=== PATIENT | male | born 1960 | race Caucasian/White ===

== ENCOUNTER 2020-02-04 19:08 | Inpatient (IN) | payer OTHER ==
--- NOTE | 2020-02-04 19:37 | PDOC ---
Rapid Medical Evaluation Chief Complaint: Lightheaded Time Seen by Provider: 02/04/20 19:32 Medical Evaluation: 02/04/20 19:35 59 year old male history of diabetes c.o chills, dizziness, denies cough, chest pain, sob patient reports that he had a dental abscess a week ago since then he is unwell. PE: patient alert ox3. A: hyperglyecemia? P: labs IVf Discharge Disposition - Diagnosis Dizziness - Referrals - Patient Instructions - Post Discharge Activity
[2020-02-04] MEDS ORDERED: SODIUM CHLORIDE 1,000 ML IV STA (19:38)
[2020-02-04 19:46] VITALS: BP 146/87; PULSE 108; TEMP 98.6; BMI 21.5
--- NOTE | 2020-02-04 20:31 | PDOC ---
History of Present Illness - General Chief Complaint: Lightheaded Stated Complaint: DIZZINESS Time Seen by Provider: 02/04/20 19:32 History Source: Patient Exam Limitations: No Limitations - History of Present Illness Initial Comments: 02/04/20 20:28 HISTORY OF PRESENT ILLNESS: 59-year-old male past medical history of NIDDM who presents emergency department for evaluation of fatigue and nausea after having an abscess burst in his mouth. Patient reports he was suffering with a gingival abscess over the past 4 days when he noticed some relief after it had burst. He had swallowed some of the felt tasting discharge he began to feel ill afterwards. He denies any fevers, chills, shortness of breath, hematuria, dysuria, polyuria, polydipsia polyphagia, rectal bleeding. No recent travel or sick contacts. PAST MEDICAL HISTORY: NIDDM SURGICAL HISTORY: Denies ALLERGIES: No known drug allergies REVIEW OF SYSTEMS General/Constitutional: See HPI HEENT: Denies change in vision. Denies ear pain or discharge. Denies sore throat. Cardiovascular: Denies chest pain or shortness of breath. Respiratory: Denies cough, wheezing, or hemoptysis. Gastrointestinal: Denies nausea, vomiting, diarrhea or constipation. Denies rectal bleeding. Genitourinary: Denies dysuria, frequency, or change in urination. Musculoskeletal: Denies joint or muscle swelling or pain. Denies neck or back pain. Skin and breasts: Denies rash or easy bruising. Neurologic: Denies headache, vertigo, loss of consciousness, or loss of sensation. Psychiatric: Denies depression or anxiety. Endocrine: Denies increased thirst. Denies abnormal weight change. Hematologic/Lymphatic: Denies anemia, easy bleeding, or history of blood clots. Allergic/Immunologic: Denies hives or skin allergy. Denies latex allergy. PHYSICAL EXAM General Appearance: Well-appearing, appropriately dressed. No apparent distress , no intoxication. HEENT: EOMI, PERRLA, normal ENT inspection, normal voice, TMs normal, pharynx normal. No conjunctival pallor. No photophobia, scleral icterus. Poor dentition present. Plus presents on the buccal aspect of the gingival surface at the area of tooth #16. No facial swelling present. No tenderness upon palpation of the facial bones. Neck: Supple. Trachea midline. No tenderness, rigidity, carotid bruit, stridor, lymphadenopathy, or thyromegaly. Respiratory/Chest: Lungs CTAB. No shortness of breath, chest tenderness, respiratory distress, accessory muscle use. No crackles, rales, rhonchi, stridor, wheezing, dullness Cardiovascular: RRR. S1, S2. No JVD, murmur, bradycardia, tachycardia. Vascular Pulses: Dorsalis-Pedis (R): 2+, Dorsalis-Pedis (L): 2+ Gastrointestinal/Abdominal: Normal bowel sounds. Abdomen soft, non-distended. No tenderness or rebound tenderness. No organomegaly, pulsatile mass, guarding, hernia, hepatomegaly, splenomegaly. Neurologic: machinist supervisor outside II-XII intact. Fully oriented, alert. Appropriate mood/affect. Motor strength 5/5. No appreciable EOM palsy, facial droop or sensory deficit. Past History - Past Medical History Allergies/Adverse Reactions: Allergies Allergy/AdvReac Type Severity Reaction Status Date / Time No Known Allergies Allergy Verified 02/04/20 19:38 - Psycho Social/Smoking Cessation Hx Smoking History: Never smoked Hx Alcohol Use: No Drug/Substance Use Hx: No *Physical Exam - Vital Signs Last Vital Signs Temp Pulse Resp BP Pulse Ox 98.6 F 108 H 18 146/87 96 02/04/20 19:35 02/04/20 19:35 02/04/20 19:35 02/04/20 19:35 02/04/20 19:35 ED Treatment Course - LABORATORY CBC & Chemistry Diagram: 02/04/20 20:26 02/04/20 20:26 - ADDITIONAL ORDERS Additional order review: Laboratory Results 02/04/20 20:25 POC Glucometer 413 02/04/20 20:25 POC Glucometer 413 Medical Decision Making - Medical Decision Making 02/04/20 20:31 A/P: 59-year-old male with nausea after he swallowed purulent drainage from a dental abscess Heart rate 108. Respiratory rate 18 [id number] Patient is tachycardic likely due to pain. Patient unlikely to be in DKA as he is a fjb-[id number]-ilvumrval diabetic with a sugar of 417. Labs including beta hydroxybutyric acid Normal saline 1 L IV bolus Urinalysis Reassess 02/04/20 22:01 Laboratory Tests 02/04/20 02/04/20 02/04/20 19:39 20:25 20:26 WBC 9.1 RBC 5.55 Hgb 15.3 Hct 47.3 MCV 85.3 MCH 27.6 MCHC 32.4 RDW 13.0 Plt Count 302 MPV 8.4 Absolute Neuts (auto) 8.0 Neutrophils % 87.8 H Lymphocytes % 5.8 L Monocytes % 6.1 Eosinophils % 0.0 Basophils % 0.3 Nucleated RBC % 0 Sodium Potassium Chloride Carbon Dioxide Anion Gap BUN Creatinine Est GFR (CKD-EPI)AfAm Est GFR (CKD-EPI)NonAf POC Glucometer 413 Random Glucose Calcium Total Bilirubin AST ALT Alkaline Phosphatase Creatine Kinase Troponin I Total Protein Albumin Beta-Hydroxybutyrate Pending 02/04/20 20:26 WBC RBC Hgb Hct MCV MCH MCHC RDW Plt Count MPV Absolute Neuts (auto) Neutrophils % Lymphocytes % Monocytes % Eosinophils % Basophils % Nucleated RBC % Sodium 130 L Potassium 5.9 H Chloride 92 L Carbon Dioxide 19 L Anion Gap 19 H BUN 29.7 H Creatinine 1.7 H Est GFR (CKD-EPI)AfAm 49.70 Est GFR (CKD-EPI)NonAf 42.88 POC Glucometer Random Glucose 395 H Calcium 10.4 H Total Bilirubin 0.6 AST 34 ALT 33 Alkaline Phosphatase 93 Creatine Kinase 142 Troponin I < 0.02 Total Protein 8.4 H Albumin 3.3 L Beta-Hydroxybutyrate EKG sinus rhythm with rate of 100. Normal intervals present. Normal axis. No ischemic changes noted. No peak T waves present. Given patient's elevated potassium, anion gap of 19 and acute kidney injury will admit patient for continued hydration and treatment of DKA. Patient states he does not have a primary doctor. Microblog has been sent to the hospitalist service for admission. 02/04/20 22:04 02/04/20 22:27 Discharge - Discharge Information Problems reviewed: Yes Clinical Impression/Diagnosis: DKA (diabetic ketoacidoses), Hyperkalemia, SERGEY (acute kidney injury) - Follow up/Referral - Patient Discharge Instructions - Post Discharge Activity
[2020-02-04 21:14] LABS: BASO % 0.3 % (0-2.0); HEMATOCRIT 47.3 % (35.4-49); HEMOGLOBIN 15.3 GM/dL (11.7-16.9); LYMPH % 5.8 % (8-40); MCH 27.6 pg (25.7-33.7); MCHC 32.4 g/dl (32.0-35.9); MEAN CELL VOLUME 85.3 fl (80-96); MEAN PLT VOLUME 8.4 fl (7.5-11.1); MONO % 6.1 % (3.8-10.2); NEUT % 87.8 % (42.8-82.8); PLATELET COUNT 302 K/MM3 (134-434); RBC 5.55 M/mm3 (4.00-5.60); WHITE BLOOD COUNT 9.1 K/mm3 (4.0-10.0)
[2020-02-04 21:49] LABS: ALBUMIN 3.3 g/dl (3.4-5.0); ALK PHOS 93 U/L (45-117); ANION GAP 19 MMOL/L (8-16); BILIRUBIN,TOTAL 0.6 mg/dL (0.2-1); BLOOD UREA NITROGEN 29.7 mg/dL (7-18); CALCIUM 10.4 mg/dL (8.5-10.1); CHLORIDE 92 mmol/L (98-107); CO2 19 mmol/L (21-32); CREATININE 1.7 mg/dL (0.55-1.3); GLUCOSE,RANDOM 395 mg/dL (74-106); POTASSIUM 5.9 mmol/L (3.5-5.1); SGOT/AST 34 U/L (15-37); SGPT/ALT 33 U/L (13-61); SODIUM 130 mmol/L (136-145); TOT PROT 8.4 g/dl (6.4-8.2)
[2020-02-04] MEDS ORDERED: INSULIN REGULAR HUMAN 100 UNITS/ML *VIAL SQ ONE (21:59)
[2020-02-04 22:39] LABS: VENOUS PC02 37.1 mmHg (38-52); VENOUS PH 7.32 (7.31-7.41)
[2020-02-04 22:40] LABS: VENOUS PO2 < 49 mmHg (28-48)
--- NOTE | 2020-02-04 22:42 | PN ---
Teaching Attending Note Name of Resident: Nuha Petty ATTENDING PHYSICIAN STATEMENT I saw and evaluated the patient. I reviewed the resident's note and discussed the case with the resident. I agree with the resident's findings and plan as documented. SUBJECTIVE: Patient is a 59-year-old man with a PMH of NIDDM and ?Gingival abscess who p resents to the ER with fatigue and nausea after having an abscess burst in his mouth. Patient reports he was suffering with a gingival abscess over the past 4 days when he noticed some relief after it had burst. He had swallowed some of the felt tasting discharge he began to feel ill afterwards. He denies any fevers, chills, shortness of breath, hematuria, dysuria, polyuria, polydipsia polyphagia, rectal bleeding. Denies alcohol, tobacco or illicit drug use. No sick contacts or recent travels. OBJECTIVE: Alert Vital Signs Period Temp Pulse Resp BP Sys/Toribio Pulse Ox Last 24 Hr 98.6 F 108 18 146/87 96 HEENT: No Jaundice, eye redness or discharge, PERRLA, EOMI. Normocephalic, atraumatic. External ears are normal and hearing is grossly intact. No nasal discharge. Neck: Supple, nontender. No palpable adenopathy or thyromegaly. No JVD Chest: Good effort. Clear to auscultation and percussion. Heart: Regular. No S3, rub or murmur Abdomen: Not distended, soft, nontender and no HSM. No rebound or guarding. Normal bowel sounds. Ext: Peripheral pulses intact. No leg edema. Skin: Warm and dry. No petechiae, rash or ecchymosis. Neuro: Alert. Oriented x3. CN 2-12 grossly intact. Sensation grossly intact in all four extremities and DTR are symmetric. Psych: Appropriate mood and affect. Good insight. Current Medications Generic Name Dose Route Start Last Admin Trade Name Freq PRN Reason Stop Dose Admin Chlorhexidine Gluconate 1 applic 02/05/20 22:00 Hibiclens For Decolonization - TP HS ERICA Heparin Sodium (Porcine) 5,000 unit 02/05/20 06:00 Heparin - SQ TID ERICA Sodium Chloride 1,000 mls @ 75 mls/hr 02/04/20 23:15 Normal Saline - IV ASDIR ERICA Mupirocin 1 applic 02/04/20 23:15 Bactroban Ointment (For Decolonization) - NS 02/09/20 23:14 BID ERICA Abnormal Lab Results 02/04/20 02/04/20 02/04/20 19:39 20:26 20:26 Neutrophils % 87.8 H Lymphocytes % 5.8 L POC VBG pCO2 POC VBG pO2 VBG HCO3 VBG O2 Sat (Tarun) VBG Base Excess Sodium 130 L Potassium 5.9 H Chloride 92 L Carbon Dioxide 19 L Anion Gap 19 H BUN 29.7 H Creatinine 1.7 H Random Glucose 395 H Calcium 10.4 H Total Protein 8.4 H Albumin 3.3 L Beta-Hydroxybutyrate > 46.0 H 02/04/20 22:30 Neutrophils % Lymphocytes % POC VBG pCO2 37.1 L POC VBG pO2 < 49 H VBG HCO3 18.4 L VBG O2 Sat (Tarun) 40.1 L VBG Base Excess -6.6 L Sodium Potassium Chloride Carbon Dioxide Anion Gap BUN Creatinine Random Glucose Calcium Total Protein Albumin Beta-Hydroxybutyrate ASSESSMENT AND PLAN: 1. Gingival abscess/DKA - Will treat dental abscess with Clindamycin 300 mg IV q 6 hours and consult Oral surgery and ID. Will treat mild DKA with IV insulin and IV NS and monitor accoding to the DKA protocol. Provide comprehensive diabetes care with patient teaching and counseling about the importance of adherence to prescribed diabetes regimen, euglycemia, eye care and foot care. No acute abnormality on CXR. Will continue comprehensive care for all of patients comorbid conditions. 2. Hypoalbuminemia - Possibly due to combined effects of malnutrition and inflammation associated with comorbid chronic conditions. Will ensure adequate dietary protein intake and also consult wireless development manager. Urinalysis pending. 3. SERGEY - Likely ue to dehydration. Will get kidney sonogram and monitor urine output as he is hydrated. Hyperkalemia and hyponatremia will improve with hydration and euglycemia. Will consult nephrology and avoid nephrotoxic agents such as NSAIDS, aminoglycosides, contrast dyes and certain Alternative medicine products. 4. DVT prophylaxis - Heparin 5000u sq tid. 5. Advance directives - Full code
[2020-02-04] MEDS ORDERED: SODIUM CHLORIDE 1,000 ML IV SCH (23:15)
[2020-02-04] MEDS ORDERED: MUPIROCIN 2% TOPICAL OINTMENT FOR DECOLONIZATION NS SCH (23:15)
[2020-02-04] MEDS ORDERED: INSULIN REGULAR HUMAN 100 UNITS/ML *VIAL IVPUSH ONE (23:31)
--- NOTE | 2020-02-04 23:45 | HP ---
PCP: none HISTORY OF PRESENT ILLNESS: This is a 59-year-old male past medical history of NIDDM who presents emergency department for evaluation of fatigue and nausea after having an abscess burst in his mouth. Patient reports he was suffering with a gingival abscess over the past 4 days when he noticed some relief after it had burst. He had swallowed some of the pus, stating he could taste the discharge and he began to feel ill afterwards. He denies any fevers, chills, shortness of breath, hematuria, dysuria, polyuria, polydipsia polyphagia, rectal bleeding. No recent travel or sick contacts. ER course was notable for: (1)- EKG- 100 rate, QTc 415, normal sinus rhythm (2) (3) PAST MEDICAL HISTORY: PAST SURGICAL HISTORY: Allergies No Known Allergies Allergy (Verified 02/04/20 19:38) HOME MEDICATIONS: REVIEW OF SYSTEMS negative except above PHYSICAL EXAMINATION Vital Signs - 24 hr 02/04/20 19:35 Temperature 98.6 F Pulse Rate 108 H Respiratory 18 Rate Blood Pressure 146/87 O2 Sat by Pulse 96 Oximetry (%) Due to lack of PPE, refer to ED Note PE Laboratory Results - last 24 hr 02/04/20 02/04/20 02/04/20 19:39 20:25 20:26 WBC 9.1 RBC 5.55 Hgb 15.3 Hct 47.3 MCV 85.3 MCH 27.6 MCHC 32.4 RDW 13.0 Plt Count 302 MPV 8.4 Absolute Neuts (auto) 8.0 Neutrophils % 87.8 H Lymphocytes % 5.8 L Monocytes % 6.1 Eosinophils % 0.0 Basophils % 0.3 Nucleated RBC % 0 VBG pH POC VBG pCO2 POC VBG pO2 VBG HCO3 VBG O2 Sat (Tarun) VBG Base Excess Sodium Potassium Chloride Carbon Dioxide Anion Gap BUN Creatinine Est GFR (CKD-EPI)AfAm Est GFR (CKD-EPI)NonAf POC Glucometer 413 Random Glucose Calcium Total Bilirubin AST ALT Alkaline Phosphatase Creatine Kinase Troponin I Total Protein Albumin Beta-Hydroxybutyrate > 46.0 H 02/04/20 02/04/20 02/04/20 20:26 22:30 23:38 WBC RBC Hgb Hct MCV MCH MCHC RDW Plt Count MPV Absolute Neuts (auto) Neutrophils % Lymphocytes % Monocytes % Eosinophils % Basophils % Nucleated RBC % VBG pH 7.32 POC VBG pCO2 37.1 L POC VBG pO2 < 49 H VBG HCO3 18.4 L VBG O2 Sat (Tarun) 40.1 L VBG Base Excess -6.6 L Sodium 130 L Potassium 5.9 H Chloride 92 L Carbon Dioxide 19 L Anion Gap 19 H BUN 29.7 H Creatinine 1.7 H Est GFR (CKD-EPI)AfAm 49.70 Est GFR (CKD-EPI)NonAf 42.88 POC Glucometer 359 Random Glucose 395 H Calcium 10.4 H Total Bilirubin 0.6 AST 34 ALT 33 Alkaline Phosphatase 93 Creatine Kinase 142 Troponin I < 0.02 Total Protein 8.4 H Albumin 3.3 L Beta-Hydroxybutyrate ASSESSMENT/PLAN: This is a 59-year-old male past medical history of NIDDM who presents emergency department for evaluation of fatigue and nausea after having an abscess burst in his mouth. Patient reports he was suffering with a gingival abscess over the past 4 days when he noticed some relief after it had burst. He had swallowed some of the pus, stating he could taste the discharge and he began to feel ill afterwards. #Acute DKA - likely 2/2 poor glycemic control due to non-compliance or abscess - Glu 395, AG 19, HCO3 19, VBG pH 7.32, - K 5.9 will initiate IV insulin bolus 0.1mg/kg - no need for drip even though AG elevated likely pt will close it with a bolus - pt refusing insulin drip - BGM q1h, BMP q4h - ABG ordered - beta hydroxybutyrate elevated - EKG- 100 rate, QTc 415, normal sinus rhythm #Gingival abscess - likely cause of DKA - 3gQ8 unasyn - afebrile - no leukocytosis - continue to monitor Visit type - Emergency Visit Emergency Visit: Yes ED Registration Date: 02/04/20 Care time: The patient presented to the Emergency Department on the above date and was hospitalized for further evaluation of their emergent condition. - New Patient This patient is new to me today: Yes Date on this admission: 02/05/20 - Critical Care Critical Care patient: No ATTENDING PHYSICIAN STATEMENT I saw and evaluated the patient. I reviewed the resident's note and discussed the case with the resident. I agree with the resident's findings and plan as documented. SUBJECTIVE: OBJECTIVE: ASSESSMENT AND PLAN:
[2020-02-05 00:17] LABS: BLOOD UREA NITROGEN 29.9 mg/dL (7-18); CALCIUM 9.2 mg/dL (8.5-10.1); CREATININE 1.4 mg/dL (0.55-1.3); POTASSIUM 4.8 mmol/L (3.5-5.1)
--- NOTE | 2020-02-05 00:52 | CONSULT ---
Consultation: REQUESTING PROVIDER: Dr. Morales CONSULT REQUEST: We have been asked to medically evaluate this patient for DKA. HISTORY OF PRESENT ILLNESS: The patient is a 59yo m w/PMH NIDDM who presented to the ED c/o fatigue and nausea after having an abscess burst in his mouth. Patient states that his gi ngival abscess burst approx. 1 week ago and he has felt fatigue and nausea since then. Patient states he was diagnosed w/ DM 3 years ago and placed on metformin and glimiparide. His insurance lapsed 2 years ago and he has net been able to see an MD or get medications since then. Patient has gotten some medicatoins froma friend and last took them approx. 3 months ago. Patient doens not check his sugars at home. Patient found to be hyperglycemic and have an open anion gap in the ED. Ph 7.3. ED staff treated the patient w/ SQ insulin. On interview, the patient states that he does not want to stay in the hospital because he has no insurance and cannot afford it. Explained the patient's diagnosis to him and the dangers which come with leaving AMA. Patient verbalized understanding and still did not wish to stay in the hospital. REVIEW OF SYSTEMS: negative except for HPI PHYSICAL EXAMINATION Vital Signs - 24 hr 02/04/20 19:35 Temperature 98.6 F Pulse Rate 108 H Respiratory 18 Rate Blood Pressure 146/87 O2 Sat by Pulse 96 Oximetry (%) GENERAL: Awake, alert, and fully oriented, in no acute distress. LUNGS: Breath sounds equal, clear to auscultation bilaterally. No wheezes, and no crackles. No accessory muscle use. HEART: Regular rate and rhythm, normal S1 and S2 without murmur, rub or gallop. Laboratory Results - last 24 hr 02/04/20 02/04/20 02/04/20 19:39 20:25 20:26 WBC 9.1 RBC 5.55 Hgb 15.3 Hct 47.3 MCV 85.3 MCH 27.6 MCHC 32.4 RDW 13.0 Plt Count 302 MPV 8.4 Absolute Neuts (auto) 8.0 Neutrophils % 87.8 H Lymphocytes % 5.8 L Monocytes % 6.1 Eosinophils % 0.0 Basophils % 0.3 Nucleated RBC % 0 VBG pH POC VBG pCO2 POC VBG pO2 VBG HCO3 VBG O2 Sat (Tarun) VBG Base Excess Sodium Potassium Chloride Carbon Dioxide Anion Gap BUN Creatinine Est GFR (CKD-EPI)AfAm Est GFR (CKD-EPI)NonAf POC Glucometer 413 Random Glucose Calcium Total Bilirubin AST ALT Alkaline Phosphatase Creatine Kinase Troponin I Total Protein Albumin Beta-Hydroxybutyrate > 46.0 H 02/04/20 02/04/20 02/04/20 20:26 22:30 23:38 WBC RBC Hgb Hct MCV MCH MCHC RDW Plt Count MPV Absolute Neuts (auto) Neutrophils % Lymphocytes % Monocytes % Eosinophils % Basophils % Nucleated RBC % VBG pH 7.32 POC VBG pCO2 37.1 L POC VBG pO2 < 49 H VBG HCO3 18.4 L VBG O2 Sat (Tarun) 40.1 L VBG Base Excess -6.6 L Sodium 130 L Potassium 5.9 H Chloride 92 L Carbon Dioxide 19 L Anion Gap 19 H BUN 29.7 H Creatinine 1.7 H Est GFR (CKD-EPI)AfAm 49.70 Est GFR (CKD-EPI)NonAf 42.88 POC Glucometer 359 Random Glucose 395 H Calcium 10.4 H Total Bilirubin 0.6 AST 34 ALT 33 Alkaline Phosphatase 93 Creatine Kinase 142 Troponin I < 0.02 Total Protein 8.4 H Albumin 3.3 L Beta-Hydroxybutyrate 02/04/20 23:40 WBC RBC Hgb Hct MCV MCH MCHC RDW Plt Count MPV Absolute Neuts (auto) Neutrophils % Lymphocytes % Monocytes % Eosinophils % Basophils % Nucleated RBC % VBG pH POC VBG pCO2 POC VBG pO2 VBG HCO3 VBG O2 Sat (Tarun) VBG Base Excess Sodium 131 L Potassium 4.8 Chloride 97 L Carbon Dioxide 16 L Anion Gap 17 H BUN 29.9 H Creatinine 1.4 H Est GFR (CKD-EPI)AfAm 62.84 Est GFR (CKD-EPI)NonAf 54.22 POC Glucometer Random Glucose 365 H Calcium 9.2 Total Bilirubin AST ALT Alkaline Phosphatase Creatine Kinase Troponin I Total Protein Albumin Beta-Hydroxybutyrate Active Medications Generic Name Dose Route Start Last Admin Trade Name Freq PRN Reason Stop Dose Admin Heparin Sodium (Porcine) 5,000 unit 02/05/20 06:00 Heparin - SQ TID ERICA Sodium Chloride 1,000 mls @ 75 mls/hr 02/04/20 23:15 02/04/20 23:52 Normal Saline - IV 75 mls/hr ASDIR ERICA Administration Ampicillin Sodium/Sulbactam 100 mls @ 200 mls/hr 02/05/20 02:00 Sodium 3 gm/ Sodium Chloride IVPB Q8H-IV ERICA ASSESSMENT/PLAN: The patient is a 59yo m w/PMH NIDDM who presented to the ED c/o fatigue and nausea after having an abscess burst in his mouth. Patient was found to be hyperglyemic and the ICU was consulted for the possibility of the patient requiring an insulin GTT. Endo: -Patient w/ hyperglyemia and elevated anion gap -suggest rpt BMP now -patient does not require ICU level of care at this time as he can likely be managed with IV insulin and close BGMs with ISS. -Patient states that he wishes to leave AMA and does not want inpatient treatment Visit type - Emergency Visit Emergency Visit: Yes ED Registration Date: 02/04/20 Care time: The patient presented to the Emergency Department on the above date and was hospitalized for further evaluation of their emergent condition. - New Patient This patient is new to me today: Yes Date on this admission: 02/05/20 - Critical Care Critical Care patient: Yes Total Critical Care Time (in minutes): 35 Critical Care Statement: The care of this patient involved high complexity decision making to prevent further life threatening deterioration of the patient's condition and/or to evaluate & treat vital organ system(s) failure or risk of failure. ATTENDING PHYSICIAN STATEMENT I saw and evaluated the patient. I reviewed the resident's note and discussed the case with the resident. I agree with the resident's findings and plan as documented. SUBJECTIVE: OBJECTIVE: ASSESSMENT AND PLAN:
[2020-02-05] MEDS ORDERED: AMPICILLIN NA/SULBACTAM NA 3 GM in SODIUM CHLORIDE 100 ML IVPB SCH (02:00)
[2020-02-05] MEDS ORDERED: HEPARIN NA (PORCINE) 5,000 UNITS/ML 1ML VIAL SQ SCH (06:00)
--- NOTE | 2020-02-05 07:02 | DS ---
Physical Exam: SUBJECTIVE: Patient seen and examined. Pt insisting on leaving against medical advice. OBJECTIVE: Vital Signs Period Temp Pulse Resp BP Sys/Toribio Pulse Ox Last 24 Hr 98.6 F 108 18 146/87 96 PHYSICAL EXAM GENERAL: The patient is awake, alert, and fully oriented, in no acute distress. LUNGS: Breath sounds equal, clear to auscultation bilaterally, no wheezes, no crackles, no accessory muscle use. HEART: Regular rate and rhythm, S1, S2 without murmur, rub or gallop. ABDOMEN: Soft, nontender to palpation, nondistended. EXTREMITIES: 2+ pulses, warm, well-perfused, no edema. LABS Laboratory Results - last 24 hr 02/04/20 02/04/20 02/04/20 19:39 20:25 20:26 WBC 9.1 RBC 5.55 Hgb 15.3 Hct 47.3 MCV 85.3 MCH 27.6 MCHC 32.4 RDW 13.0 Plt Count 302 MPV 8.4 Absolute Neuts (auto) 8.0 Neutrophils % 87.8 H Lymphocytes % 5.8 L Monocytes % 6.1 Eosinophils % 0.0 Basophils % 0.3 Nucleated RBC % 0 VBG pH POC VBG pCO2 POC VBG pO2 VBG HCO3 VBG O2 Sat (Tarun) VBG Base Excess Sodium Potassium Chloride Carbon Dioxide Anion Gap BUN Creatinine Est GFR (CKD-EPI)AfAm Est GFR (CKD-EPI)NonAf POC Glucometer 413 Random Glucose Calcium Total Bilirubin AST ALT Alkaline Phosphatase Creatine Kinase Troponin I Total Protein Albumin Beta-Hydroxybutyrate > 46.0 H 02/04/20 02/04/20 02/04/20 20:26 22:30 23:38 WBC RBC Hgb Hct MCV MCH MCHC RDW Plt Count MPV Absolute Neuts (auto) Neutrophils % Lymphocytes % Monocytes % Eosinophils % Basophils % Nucleated RBC % VBG pH 7.32 POC VBG pCO2 37.1 L POC VBG pO2 < 49 H VBG HCO3 18.4 L VBG O2 Sat (Tarun) 40.1 L VBG Base Excess -6.6 L Sodium 130 L Potassium 5.9 H Chloride 92 L Carbon Dioxide 19 L Anion Gap 19 H BUN 29.7 H Creatinine 1.7 H Est GFR (CKD-EPI)AfAm 49.70 Est GFR (CKD-EPI)NonAf 42.88 POC Glucometer 359 Random Glucose 395 H Calcium 10.4 H Total Bilirubin 0.6 AST 34 ALT 33 Alkaline Phosphatase 93 Creatine Kinase 142 Troponin I < 0.02 Total Protein 8.4 H Albumin 3.3 L Beta-Hydroxybutyrate 02/04/20 23:40 WBC RBC Hgb Hct MCV MCH MCHC RDW Plt Count MPV Absolute Neuts (auto) Neutrophils % Lymphocytes % Monocytes % Eosinophils % Basophils % Nucleated RBC % VBG pH POC VBG pCO2 POC VBG pO2 VBG HCO3 VBG O2 Sat (Tarun) VBG Base Excess Sodium 131 L Potassium 4.8 Chloride 97 L Carbon Dioxide 16 L Anion Gap 17 H BUN 29.9 H Creatinine 1.4 H Est GFR (CKD-EPI)AfAm 62.84 Est GFR (CKD-EPI)NonAf 54.22 POC Glucometer Random Glucose 365 H Calcium 9.2 Total Bilirubin AST ALT Alkaline Phosphatase Creatine Kinase Troponin I Total Protein Albumin Beta-Hydroxybutyrate HOSPITAL COURSE: Date of Admission:02/04/20 This is a 59-year-old male past medical history of NIDDM who was admitted for DKA management. Patient underwent Insulin bolus and ICU consultation was placed. He refused insulin drip. Pt was insisting on AMA. I explained the risks of AMA not limited to MVA, coma, and even . Date of Discharge: 02/05/20 Minutes to complete discharge: 35 Discharge Summary Problems reviewed: Yes Reason For Visit: DIABETIC KETOACIDOSIS Current Active Problems SERGEY (acute kidney injury) (Acute) DKA (diabetic ketoacidoses) (Acute) Hyperkalemia (Acute) - Instructions - Home Medications Comprehensive Discharge Medication List: Ambulatory Orders Clindamycin [Cleocin -] 300 mg PO Q6H 10 Days #40 capsule 02/05/20 This patient is new to me today: Yes Date on this admission: 02/05/20 Emergency Visit: Yes ED Registration Date: 02/04/20 Care time: The patient presented to the Emergency Department on the above date and was hospitalized for further evaluation of their emergent condition. Critical Care patient: No - Discharge Referral Referred to [facility] Med P.C.: No ATTENDING PHYSICIAN STATEMENT I saw and evaluated the patient. I reviewed the resident's note and discussed the case with the resident. I agree with the resident's findings and plan as documented. SUBJECTIVE: OBJECTIVE: ASSESSMENT AND PLAN:
--- NOTE | 2020-02-05 10:03 | EKG ---
Test Reason : Blood Pressure : / mmHG Vent. Rate : 100 BPM Atrial Rate : 100 BPM P-R Int : 168 ms QRS Dur : 074 ms QT Int : 322 ms P-R-T Axes : 052 020 025 degrees QTc Int : 415 ms NORMAL SINUS RHYTHM NORMAL ECG NO PREVIOUS ECGS AVAILABLE Confirmed by MD Ames Daniel ([id number]) on 02/05/2020 10:03:30 AM Referred By: Confirmed By:Quinn Ames MD
[2020-02-05] MEDS ORDERED: CHLORHEXIDINE GLUCONATE 4% CLEANSER FOR DECOLONIZATION TP SCH (22:00)
== END 2020-02-05 07:08 | disposition left against medical advice (07) | DRG 638 ==
LOC: JER 19:08 → JERBED 23:08
PROVIDERS: ADMIT Internal Medicine; ATTEND Internal Medicine
DX: E11.10 Type 2 diabetes mellitus with ketoacidosis without coma (principal); N17.9 Acute kidney failure, unspecified; E87.5 Hyperkalemia; K05.319 Chronic periodontitis, localized, unspecified severity; E88.09 Other disorders of plasma-protein metabolism, not elsewhere classified; E86.0 Dehydration
CPT/HCPCS: 36415; 71046-TC-FY; 80048; 80053; 82010; 82550; 82803; 82962; 83036; 84484; 85025; 93005; 93010; 99285-25; J7030